=== PATIENT | male | born 1970 | race Caucasian/White ===

== ENCOUNTER 2017-08-04 12:12 | Inpatient (IN) ==
[2017-08-04] MEDS ORDERED: ALBUTEROL NEB INH ONE (12:46)
[2017-08-04] MEDS ORDERED: DUONEB (A & A) INH ONE (12:46)
[2017-08-04 13:01] LABS: MANUAL DIFF NEEDED? NO
--- NOTE | 2017-08-04 13:02 | PROVIDER DOCUMENTATION ---
HPI-Respiratory General - General Chief Complaint: Cough Stated Complaint: LOW OXYGEN Time Seen by Provider: 08/04/17 12:40 Source: patient Allergies/Adverse Reactions: Patient Allergies Allergy/AdvReac Type Severity Reaction Status Date / Time No Known Allergies Allergy Verified 08/04/17 12:59 Home Medications: Home Medication List Medication Instructions Recorded Confirmed Last Taken Type Furosemide [Lasix] 40 mg PO BID 04/12/13 08/04/17 08/03/17 21:00 History Metformin [Glucophage] 500 mg PO BID CC 04/12/13 08/04/17 08/03/17 21:00 History Potassium Chloride E.r. [Klor-Con] 20 meq PO BID #0 tablet 04/15/13 08/04/17 21:00 Rx LISINOpril [Prinivil] 5 mg PO DAILY 08/04/17 08/04/17 08/03/17 08:00 History - History of Present Illness-Resp Nature of Presenting Problem: 46 yom c/o SOB and low o2 sats for past 2 days that continues to get worse. Quality of Pain: reports: none Severity in ED: reports: moderate Onset/Duration: reports: 2 days ago Timing: reports: still present, getting worse Cough Quality/Degree: reports: moderate, productive cough Episode Frequency: occasional episodes Current Respiratory Medication Therapy: Initiated see nurses note Modifying Factors: improves with: oxygen, rest Associated Symptoms: reports: fever/chills, shortness of breath Similar Symptoms Previously?: No Recently seen or treated by another doctor?: No Review of Systems - Adult - REVIEW OF SYSTEMS - ADULT Constitutional: reports: see HPI, chills, fever Eyes: reports: no symptoms reported Ears, Nose, Mouth & Throat: reports: no symptoms reported Cardiovascular: reports: no symptoms reported Respiratory: reports: see HPI, cough, dyspnea on exertion, shortness of breath Gastrointestinal: reports: no symptoms reported Genitourinary: reports: no symptoms reported Musculoskeletal: reports: no symptoms reported Integumentary: reports: no symptoms reported Neurological: reports: no symptoms reported Psychiatric: reports: no symptoms reported Endocrine: reports: no symptoms reported Hematologic/Lymphatic: reports: no symptoms reported Allergic/Immunologic: reports: no symptoms reported All Other Systems: Reviewed and Negative Past History - Adult - PAST MEDICAL HISTORY-ADULT Review of Records: reports: Old Records Reviewed, Nursing Assessment Review, Medications Reviewed, Social history reviewed & non-contributory. Major Childhood Illnesses: reports: denies history Cardiovascular: reports: denies history Respiratory: reports: denies history Gastrointestinal: reports: denies history Genitourinary: reports: denies history Musculoskeletal: reports: denies history Neurological: reports: denies history Psychiatric: reports: denies history Endocrine/Immune: reports: denies history Physical Exam-General - PHYSICAL EXAM-ADULT Initial Vital Signs Reviewed: Yes - CONSTITUTIONAL General Appearance: alert, no apparent distress - EYES Eyes: PERRL/EOMI, pink conjunctivae - HEAD, EARS, NOSE, MOUTH & THROAT HENMT: normocephalic/atraumatic, moist mucous membranes, normal ENT inspection - NECK Neck: non-tender, full range of motion, supple, normal inspection - RESPIRATORY Respiratory: chest non-tender, lungs clear, no pleuratic chest pain, no accessory muscle use, decreased breath sounds - CARDIOVASCULAR Cardiovascular: normal peripheral pulses, regular rate, rhythm - GASTROINTESTINAL (ABDOMEN) Abdominal Exam: normal bowel sounds, non tender, soft, no organomegaly, no pulsatile mass - LYMPHATIC Lymphatic: no adenopathy - MUSCULOSKELETAL Back Exam: normal inspection, no CVA tenderness, no vertebral tenderness Extremity: normal range of motion, non-tender, normal gait, no calf tenderness, normal capillary refill, pelvis stable, swelling (to bilateral lower extremities ) Peripheral Pulses: radial (R): 2+, radial (L): 2+, dorsalis-pedis (R): 2+, dorsalis-pedis (L): 2+ - SKIN Integumentary: normal color, normal turgor, warm/dry - NEUROLOGIC Neurologic: grossly normal, no motor/sensory deficits - PSYCHIATRIC Psych/Mental Status: normal mood/affect, normal thought content, normal thought process, oriented x 3 Progress - PLAN OF CARE/RESULTS Progress/Plan/Lab Results: Vital Signs - 8 hr 08/04/17 12:17 08/04/17 13:01 08/04/17 13:42 Temperature 98.0 F Pulse Rate 114 H 106 H 106 H Respiratory Rate 19 25 H 22 Blood Pressure 168/83 126/85 O2 Sat by Pulse Oximetry 89 L 95 Laboratory Results - last 24 hr 08/04/17 08/04/17 08/04/17 12:41 12:41 12:41 WBC 6.89 RBC 4.69 L Hgb 13.6 L Hct 44.2 MCV 94.2 MCH 29.0 MCHC 30.8 L RDW Std Deviation 16.4 H Plt Count 172 MPV 10.7 H Immature Gran % (Auto) 0.4 Neut % (Auto) 74.2 Lymph % (Auto) 12.5 L [place] % (Auto) 8.7 Eos % (Auto) 3.2 Baso % (Auto) 1.0 H Immature Gran # (Auto) 0.03 Neut # (Auto) 5.11 Lymph # (Auto) 0.86 L [place] # (Auto) 0.60 H Eos # (Auto) 0.22 Baso # (Auto) 0.07 Specimen Type Sample Site pH pCO2 pO2 HCO3 Base Excess Oxyhemoglobin ABG O2 Sat (Calculated) ABG O2 Saturation ABG Carboxyhemoglobin ABG Methemoglobin Lebron Test A-a O2 Difference Total Hemoglobin Lactate Blood Gas Modality FiO2 % Sodium 137 Potassium 4.4 Chloride 95 L Carbon Dioxide 33 Anion Gap 9 BUN 19 Creatinine 1.0 Estimated GFR/1.73 m2 > 60 BUN/Creatinine Ratio 19 Glucose 394 H Calculated Osmolality 292 Calcium 9.3 Total Bilirubin 0.40 AST 18 ALT 25 Alkaline Phosphatase 71 Troponin T < 0.010 Tzm-N-Opxafuvttyv Pept Total Protein 6.1 L Albumin 3.9 Globulin 2.2 Albumin/Globulin Ratio 1.8 08/04/17 08/04/17 12:41 14:14 WBC RBC Hgb Hct MCV MCH MCHC RDW Std Deviation Plt Count MPV Immature Gran % (Auto) Neut % (Auto) Lymph % (Auto) [place] % (Auto) Eos % (Auto) Baso % (Auto) Immature Gran # (Auto) Neut # (Auto) Lymph # (Auto) [place] # (Auto) Eos # (Auto) Baso # (Auto) Specimen Type ARTERIAL Sample Site R RADIAL pH 7.32 L pCO2 66 H* pO2 53 L HCO3 29.2 H Base Excess 5.8 H Oxyhemoglobin 86.1 L* ABG O2 Sat (Calculated) 16.0 ABG O2 Saturation 90.2 L ABG Carboxyhemoglobin 3.30 H ABG Methemoglobin 1.2 Lebron Test YES A-a O2 Difference 14.0 Total Hemoglobin 13.2 Lactate 2.40 H Blood Gas Modality ROOM AIR FiO2 % 21.0 Sodium Potassium Chloride Carbon Dioxide Anion Gap BUN Creatinine Estimated GFR/1.73 m2 BUN/Creatinine Ratio Glucose Calculated Osmolality Calcium Total Bilirubin AST ALT Alkaline Phosphatase Troponin T Hxi-Q-Wmnxfviqgly Pept 36 Total Protein Albumin Globulin Albumin/Globulin Ratio Orders Category Date Time Status Saline Loc NOW Care 08/04/17 12:46 Active CHEST-2 VIEWS [RAD] Stat Exams 08/04/17 12:46 Completed ABG [RESP] Routine Lab 08/04/17 14:14 Completed BLOOD CULTURE [BLDCUL] Stat Lab 08/04/17 12:41 Results BNP [PRO B-NATRIURETIC PEPTIDE] Stat Lab 08/04/17 12:41 Completed CBC WITH DIFF [HEME] Stat Lab 08/04/17 12:41 Completed COMPREHENSIVE METABOLIC PANEL [CHEM] Stat Lab 08/04/17 12:41 Completed TROPONIN T Stat Lab 08/04/17 12:41 Completed Albuterol 2.5MG/Ipratrop 0.5MG [Duoneb (A & A)] Med 08/04/17 12:46 Discontinued 3 ml INH NOW ONE Albuterol [Albuterol Neb] Med 08/04/17 12:46 Discontinued 2.5 mg INH NOW ONE Methylprednisolone Sod Succ [Solu-Medrol] Med 08/04/17 13:48 Discontinued 125 mg IV NOW ONE Aerosol Treatments Routine Oth 08/04/17 12:47 Completed Aerosol Treatments Stat Oth 08/04/17 12:47 Completed BIPAP Stat Oth 08/04/17 14:50 Active Pulse Oximetry Stat Oth 08/04/17 12:46 Completed 1410 Oxygen turned off to see if patient can keep his oxygen sats up. Result Diagrams: 08/04/17 12:41 08/04/17 12:41 - XRAY 1 XRAY Study: Chest Impression: Normal (Per radiologist) - CONSULTS/PCP/HOSPITALIST Notification #1 *Consult/PCP/Hospitalist*: Hospitalist Time Discussed: 15:00 Consult Disposition: Will see in ED, Admit Departure - Departure Date of Disposition Decision: 08/04/17 Time of Disposition Decision: 14:51 DIAGNOSIS: COPD exacerbation Disposition: ADMITTED INPATIENT 09 Certified Medical Emergency: Emergent Condition: Stable Referrals and Follow-Ups: Antonio Wallace [Primary Care Provider] - - Critical Care Note This patient required my direct & personal management of CC.: No Attestation - Physician/ BRITTA Attestation Patient care was provided by Advanced Practice Provider:: Yes Advanced Practice Provider:: Smith Easley Advanced Practice Provider documentation review:: The Mid-level provider documentation, treatment plan and medical decision making was reviewed by the physician who agrees with all treatment and medical decision making by the MLP. The physician spent face to face time with patient:: Yes Advanced Practice Provider documentation review:: Supervising physician onsite and consulted in the evaluation and care of this patient. The physician did have a face to face encounter with the patient.
[2017-08-04 13:26] LABS: EOS# 0.22 X1000 (0.0-0.7); EOS% 3.2 % (0.0-10.0); HEMATOCRIT 44.2 % (42.0-52.0); HEMOGLOBIN 13.6 g/dL (14.0-18.0); IMM GRAN# 0.03 X1000 (0.0-0.04); IMM GRAN% 0.4 % (0.0-0.5); LYMPH# 0.86 X1000 (1.2-3.4); LYMPH% 12.5 % (20.5-51.1); MCHC 30.8 g/dL (33-37); MCV 94.2 FL (81-99); MONO% 8.7 % (1.7-9.3); MPV 10.7 FL (7.4-10.4); NEUT% 74.2 % (42.2-75.2); PLT 172 X1000 (130-400); RBC 4.69 XMIL (4.7-6.1)
--- NOTE | 2017-08-04 13:35 | Diag Imaging Result Doc PS360 ---
CHEST-2 VIEWS - 08/04/2017 INDICATION: cough TECHNIQUE: COMPARISON: 09/14/2014 FINDINGS: There is stable small granuloma in the right upper lobe. The lungs are normally expanded and clear. Heart size and mediastinal contours are normal. No pneumothorax or pleural effusion. IMPRESSION: Negative exam. Electronically signed by Antonio Bird 08/04/2017 1:32 PM
[2017-08-04] MEDS ORDERED: SOLU-MEDROL IV ONE (13:48)
[2017-08-04 14:02] LABS: AGAP 9; ALBUMIN 3.9 g/dL (3.5-5.0); ALKALINE PHOSPHATASE 71 U/L (32-122); BUN 19 mg/dL (8-22); CALCIUM 9.3 mg/dL (8.8-10.2); CHLORIDE 95 mmol/L (98-107); COSMO 292; GOT 18 U/L (10-34); GPT 25 U/L (10-44); POTASSIUM 4.4 mmol/L (3.5-5.1); SODIUM 137 mmol/L (136-145); TCO2 33 mmol/L (25-35); TOTAL PROTEIN 6.1 g/dL (6.3-8.3)
[2017-08-04 14:24] LABS: ALLEN TEST YES; BE 5.8 mmoll (-3.0-3.0); BLOOD TYPE ARTERIAL; DRAW SITE R RADIAL; METHB 1.2 % (0.0-1.5); PO2(98.6) 53 mmHg (60-100); SAMPLE BLOOD; SAO2 90.2 % (95.0-100.0); THB 13.2 g/dL (11.5-17.4); pH(98.6) 7.32 (7.35-7.45)
[2017-08-04 14:26] LABS: MODALITY ROOM AIR; PCO2(98.6) 66 mmHg (35-45)
--- NOTE | 2017-08-04 16:12 | EKG Report ---
Test Performed on : 08/04/2017 4:00:02 PM Test Reason : evaluate rythm Blood Pressure : / mmHG Vent. Rate : 090 BPM Atrial Rate : 090 BPM P-R Int : 170 ms QRS Dur : 096 ms QT Int : 356 ms P-R-T Axes : 051 010 035 degrees QTc Int : 435 ms Normal sinus rhythm. Normal ECG When compared with ECG of 04-JUN-2013 22:06, Non-specific change in ST segment in Inferior leads Non-specific change in ST segment in Lateral leads Nonspecific T wave abnormality no longer evident in Inferior leads Nonspecific T wave abnormality no longer evident in Lateral leads QT has lengthened Unconfirmed Result
--- NOTE | 2017-08-04 16:28 | ED EKG INTERP ---
This chart was entered by Nita Carpenter Scribe, acting as scribe for Eloisa Traylor MD. EKG Interpretation - EKG Time of EKG reading by physician:: 16:00 EKG Read and Signed by:: Eloisa Traylor EKG Interpretation (*Must complete 3 of following elements*): Normal Rate: 90 Rhythm: NSR Attestation - Physician/ BRITTA Attestation Patient care was provided by Advanced Practice Provider:: No The physician spent face to face time with patient:: Yes Advanced Practice Provider documentation review:: Supervising physician onsite and consulted in the evaluation and care of this patient. The physician did have a face to face encounter with the patient. This chart was documented by the indicated scribe, (Nita Carpenter Scribe) and accurately reflects the services I performed and decisions made by me, Eloisa Traylor MD, as attested by the provider's signature.
[2017-08-04] MEDS ORDERED: TYLENOL PO PRN (16:35)
[2017-08-04] MEDS ORDERED: ZOFRAN IV PRN (16:35)
[2017-08-04] MEDS: ATROVENT NEB INH SCH ×2 (17:04→21:15)
[2017-08-04] MEDS: XOPENEX NEB INH SCH ×2 (17:05→21:15)
[2017-08-04] MEDS: HUMULIN R SUBQ SCH ×2 (17:24→20:59)
[2017-08-04] MEDS: ROCEPHIN 1 GM in NS 50 ML IV SCH (17:25)
--- NOTE | 2017-08-04 17:51 | HISTORY AND PHYSICAL ---
PRIMARY CARE PROVIDERS: Antonio Wallace Jr., M.D. CHIEF COMPLAINT: Shortness of breath. HISTORY OF PRESENT ILLNESS: Mr. Smith Medeiros is a 46-year-old morbidly obese male with a medical history of diabetes mellitus type 2, COPD, pickwickian syndrome, obstructive sleep apnea. He states that he went to [place] this morning to be triaged for a weight loss surgery. They noted his O2 saturation was 82% and gave him the option of coming to [place] for evaluation or to stay there. He preferred coming back to [place] as he lives here. Other history, he has had 2 other admissions for COPD exacerbation, once in 2007 and again in 2013. The one in 2013 required intubation. He states that he has had a fluid weight gain of 30 pounds in the last 2 months. He claims to take a dose of Lasix 240 mg, but it appears that he takes 40 mg p.o. twice daily. Upon questioning his tobacco abuse history, he quit smoking 4 years ago. ABGs revealed that he has a pH is 7.32, pCO2 of 66, and a PO2 of 53. He was not having difficulties answering questions. He did have a mild lactic acidosis of 2.4 and those gases were on room air. His O2 saturation on the monitor was about 95-96% on 2 L nasal cannula. He will be placed on BiPAP for temporary support, IV steroids, antibiotic coverage and consult for Dr. Dobbs. He had a normal white blood cell count. He was afebrile. There were only some mild expiratory wheezes. Upon auscultation, his chest x-ray did not show any signs of heart failure despite the fluid weight gain. His proBNP was normal at 36. Cardiac enzymes are negative. So, will order an echo tomorrow just to rule out any possible cardiac cause for weight gain. PAST MEDICAL HISTORY: 1. Diabetes mellitus type 2. 2. COPD, no home O2. 3. Hypertension. 4. Morbid obesity with a BMI of 65. 5. Pickwickian syndrome. 6. Obstructive sleep apnea. Does not wear CPAP. Was supposed to follow up with Dr. Dobbs at some point in time for this. 7. History of C. difficile. 8. History of intubation with tracheostomy back in 2012 for COPD. SURGICAL HISTORY: Cholecystectomy. SOCIAL HISTORY: Quit smoking 4 years ago. Denies alcohol or illicit drug use. FAMILY HISTORY: He denies that there is any family history of COPD or heart disease. REVIEW OF SYSTEMS: 14 point review of systems are complete and all were negative except for those mentioned in above HPI. He did state that he had a thick cough, thick phlegm, unsure of what color. He did have some chills and shortness of breath. He was unsure if he had a fever as he did not check it. He states that these symptoms have only been going on for about 1 day. He claims to have had a weight gain of 30 pounds in 2 months. More fatigued. He does have some diarrhea that comes and goes, but no complaints of pain. ALLERGIES: No known drug allergies. HOME MEDICATIONS: Lasix 40 mg p.o. twice daily, lisinopril 5 mg p.o. daily, metformin 500 mg p.o. twice daily, potassium chloride, extended release 20 mEq p.o. twice daily. PHYSICAL EXAMINATION: VITAL SIGNS: Temperature 98 degrees, heart rate 90, respiratory rate 22, blood pressure 126/85, O2 saturation 96% on 2 L nasal cannula. On room air he was down to 82% at the bedside. He is 5 feet 7 inches tall, 415 pounds with a BMI of 65. GENERAL: Mr. Smith Medeiros is a 46-year-old morbidly obese male, he is in no acute distress. He is able answer questions appropriately. HEENT: Atraumatic, normocephalic. Pupils equal, round, reactive to light. Extraocular movements intact. Mucous membranes are moist. NECK: Neck difficult to assess. He has a very large body habitus. Unable to assess for JVD as he had a very large neck circumference. Negative for carotid bruits. CARDIOVASCULAR: S1, S2. Tachycardic rate and rhythm. No rubs, gallops, or murmurs. He has got significant 3 to 4+ pitting edema in the lower extremities. They are warm to touch. Pulses +2 dorsalis pedal pulses. The radial pulses were also +2 once you got through the significant pitting edema. PULMONARY: Mild expiratory wheezes, anterior posteriorly throughout. Mild tachypnea with requiring 2 L nasal cannula to keep his saturation over 90. No accessory muscle use and just mild work of breathing. GI: Significantly obese. Positive bowel sounds. Nontender, soft. EXTREMITIES: Moves all extremities equally. NEUROLOGIC: Alert and oriented x4. He had a stable gait. No sensory changes in extremities. SKIN: Warm, dry, intact. LABORATORY DATA: White blood cells 6000, hemoglobin 13, hematocrit 44, platelet count 172,000. ABGs: PH 7.32, pCO2 66, PO2 53, bicarb 29, base excess 5.8, saturation 96% on room air with a lactate of 2.4, sodium 137, potassium 4.4, BUN 19, creatinine is 1, glucose 394 , bilirubin 0.4, AST 18, ALT 25, troponin was 0.01, proBNP 36, albumin 3.9. IMAGING: Chest x-ray: Lungs normally expanded and clear. Heart signs normal. No pneumonia or pleural effusion. ASSESSMENT AND PLAN: 1. Chronic obstructive pulmonary disease exacerbation. Apparently he was supposed to follow up Dr. Dobbs in the past. We will add IV steroids for now, respiratory nebulizers, prophylactic antibiotic, BiPAP for now. We will recheck ABGs in the morning and a chest x -ray. 2. Claims to have had a 30 pound weight gain. He does have significant lower extremity edema and is morbidly obese, but we will go ahead and check an echocardiogram as his last one was around 1 year ago and at that time he had a normal left ventricular ejection fraction of 60%. No valvular disease. It does not appear that he had diastolic heart failure either. His proBNP is normal, his cardiac enzymes negative. 3. Diabetes mellitus type 2. We will do pattern blood glucoses and sliding scale insulin. 4. Obstructive sleep apnea with a Pickwickian syndrome. Apparently he is going to go for weight loss surgery soon or was going to be worked up for it, but he denies wearing a CPAP at night for his obstructive sleep apnea. 5. Severe morbid obesity with a body mass index of 65. Diet and exercise was discussed. 6. Noncompliant. Patient states that he is scared of medications. He denies taking any medications for chronic obstructive pulmonary disease. 7. Deep venous thrombosis prophylaxis, Lovenox. 8. Gastrointestinal prophylaxis, Protonix. Dictated by ALO Castro for Jeferson Hill MD Addendum: Patient seen and examined. Agree with ALO note. It reflects my assessment and plan. Patient being admitted for COPD exacerbation. Last exacerbation 4 years ago and since then he was not using any inhaler. Today he went to [place] to be evaluated for bariatric surgery and he was found to have a 82% O2 sat. He was complaining of shortness of breath for the last 2 days. Also he claimed he gained 30 pounds during the last 8 weeks. He is on Lasix. There should be a component of cor pulmonale worsened by right heart failure secondary to sleep apnea. Will check an echo and will continue with Lasix. Will continue to monitor this patient closely in the hospital. Will repeat an ABG tomorrow. cc: ALO Castro MD MTDD
[2017-08-04] MEDS: PULMICORT INH SCH (20:18)
[2017-08-04] MEDS: MUCOMYST 20% INH SCH (20:18)
[2017-08-04] MEDS: KLOR-CON PO SCH (20:59)
[2017-08-04] MEDS: LASIX PO SCH (20:59)
[2017-08-04] MEDS: SOLU-MEDROL IV SCH (23:06)
[2017-08-05] MEDS: XOPENEX NEB INH SCH ×4 (04:10→21:14)
[2017-08-05] MEDS: ATROVENT NEB INH SCH ×4 (04:10→21:14)
[2017-08-05 04:53] LABS: ALLEN TEST YES; BE 6.4 mmoll (-3.0-3.0); BLOOD TYPE ARTERIAL; DRAW SITE R RADIAL; METHB 0.8 % (0.0-1.5); O2(CT) 13.4 mL/dL (15.0-23.0); PO2(98.6) 105 mmHg (60-100); SAMPLE BLOOD; SAO2 99.4 % (95.0-100.0); THB 9.8 g/dL (11.5-17.4); pH(98.6) 7.29 (7.35-7.45)
[2017-08-05 04:58] LABS: MODALITY BI PAP; PCO2(98.6) 72 mmHg (35-45)
[2017-08-05] MEDS: SOLU-MEDROL IV SCH ×3 (06:05→22:12)
[2017-08-05] MEDS: PROTONIX PO SCH (06:05)
[2017-08-05] MEDS: HUMULIN R SUBQ SCH ×4 (06:05→22:10)
[2017-08-05 07:18] LABS: BASO% 0.1 % (0.0-0.8); HEMATOCRIT 45.2 % (42.0-52.0); HEMOGLOBIN 14.1 g/dL (14.0-18.0); IMM GRAN# 0.06 X1000 (0.0-0.04); IMM GRAN% 0.8 % (0.0-0.5); LYMPH% 5.6 % (20.5-51.1); MANUAL DIFF NEEDED? YES; MCHC 31.2 g/dL (33-37); MCV 92.8 FL (81-99); MONO# 0.14 X1000 (0.11-0.59); MPV 10.9 FL (7.4-10.4); NEUT% 91.5 % (42.2-75.2); PLT 188 X1000 (130-400); RBC 4.87 XMIL (4.7-6.1)
[2017-08-05 07:41] LABS: FREE T4 1.13 ng/dL (0.93-1.70)
[2017-08-05 07:47] LABS: AGAP 12; CHLORIDE 91 mmol/L (98-107); POTASSIUM 4.8 mmol/L (3.5-5.1); SODIUM 134 mmol/L (136-145); TCO2 31 mmol/L (25-35)
[2017-08-05 07:48] LABS: ALBUMIN 3.9 g/dL (3.5-5.0); ALKALINE PHOSPHATASE 73 U/L (32-122); BANDS 2 % (0-1); BUN 18 mg/dL (8-22); CALCIUM 9.2 mg/dL (8.8-10.2); COSMO 289; GOT 21 U/L (10-34); GPT 34 U/L (10-44); LYMPHS 6 % (21-51); MONO 1 % (1-9); TOTAL BILIRUBIN 0.43 mg/dL (0.20-1.00); TOTAL PROTEIN 6.8 g/dL (6.3-8.3)
[2017-08-05] MEDS ORDERED: INSULIN PEN NEEDLES ONE (08:07)
[2017-08-05] MEDS: KLOR-CON PO SCH ×2 (08:21→22:11)
[2017-08-05] MEDS: LOVENOX SUBQ SCH (08:21)
[2017-08-05] MEDS: PRINIVIL PO SCH (08:22)
[2017-08-05] MEDS ORDERED: LANTUS SUBQ SCH (09:00)
--- NOTE | 2017-08-05 09:45 | PROGRESS NOTE ---
DATE: 08/05/2017 SUBJECTIVE: This patient states that he is feeling about the same compared with yesterday. He is still having some weakness and shortness of breath. I had a large conversation with this patient about losing weight, and he told me that he will go to [facility] because he will probably get bariatric surgery. Also, he is willing to do the sleep study because this patient has for sure sleep apnea. Dr. Dobbs, from Pulmonary Department, has been consulted pending evaluation and recommendations. For now, we will continue with the breathing treatment. This patient's blood sugar has been elevated, and his hemoglobin A1c is 9. So this patient is not taking care of his blood sugar at home. I will start this patient on Lantus 15, and I will continue with sliding scale insulin and pattern of blood sugar. OBJECTIVE: Vital Signs: Temperature 97.6 degrees, pulse 70, respiratory rate 20, blood pressure 147/91, oxygen saturation 93 on 3 L of nasal cannula. HEENT: Head normocephalic. No trauma. PERRLA. Neck: Supple. I cannot see JVD because of his neck size. Central trachea. Chest: Decreased breath sounds at the bases. I do not hear any wheezing or rales. Abdomen: Soft, obese, nontender to palpation. Extremities: 2+ lower extremity edema. No clubbing. No cyanosis. Neurological: The patient is alert and oriented x3. No focal deficits. LABORATORY: WBC 7.1, hemoglobin 14.1, hematocrit 45.2, platelets 188,000. Sodium 134, potassium 4.8, chloride 91, bicarbonate 31, BUN 18, creatinine 0.9, glucose 426, calcium 9.2. Hemoglobin A1c 9. TSH 125, T4 1.1. ASSESSMENT AND PLAN: 1. Chronic obstructive pulmonary disease exacerbation. I do not hear any wheezing at this moment, but he has decreased breath sounds at mostly at the bases. He was supposed to follow up with Dr. Dobbs in the past. We have consulted him again. This patient is to have a sleep study done. He needs a CPAP machine to use during the night. For now, I will continue with the same management of his respiratory problems. 2. Fluid overload. Apparently, he has been gaining weight about 30 pounds, and he states that all of this is because of he is retaining fluid. He is morbidly obese, and he has lower extremity up to the thigh edema around 2 to 3+. Pending echocardiogram, a year ago the ejection fraction was fine, around 60%. I do not see any JVD. 3. Type 2 diabetes, uncontrolled. Hemoglobin A1c is 9. I have placed this patient on Lantus 15, and will continue pattern blood sugar and sliding scale insulin. 4. Obstructive sleep apnea with Pickwickian syndrome. Apparently, he is going to go for bariatric surgery at [facility]. He is being worked up for this. He denies any CPAP at night for his sleep apnea. 5. Severe obesity with a body max body mass index of 65. We had a discussion about this. I recommended more physical activity and diet. Like I mentioned before, he is trying to get bariatric surgery. 6. Deep vein thrombosis prophylaxis with Lovenox. 7. Gastrointestinal prophylaxis. Continue with Protonix. cc: Joseph Caraballo MD
[2017-08-05] MEDS: LASIX PO SCH ×2 (10:32→22:11)
[2017-08-05] MEDS: MUCOMYST 20% INH SCH ×2 (11:09→19:48)
[2017-08-05] MEDS: PULMICORT INH SCH ×2 (11:09→19:49)
[2017-08-05] MEDS ORDERED: MYCOSTATIN POWDER TOP SCH (13:30)
[2017-08-05] MEDS: ROCEPHIN 1 GM in NS 50 ML IV SCH (16:30)
[2017-08-06] MEDS: HUMULIN R SUBQ SCH ×6 (00:40→21:00)
[2017-08-06] MEDS: ATROVENT NEB INH SCH ×4 (04:07→21:30)
[2017-08-06] MEDS: XOPENEX NEB INH SCH ×4 (04:07→21:30)
[2017-08-06 04:40] LABS: ALLEN TEST YES; BE 8.2 mmoll (-3.0-3.0); BLOOD TYPE ARTERIAL; DRAW SITE R RADIAL; METHB 1.5 % (0.0-1.5); O2(CT) 18.5 mL/dL (15.0-23.0); PO2(98.6) 102 mmHg (60-100); SAMPLE BLOOD; SAO2 98.5 % (95.0-100.0); THB 13.8 g/dL (11.5-17.4); pH(98.6) 7.37 (7.35-7.45)
[2017-08-06 04:42] LABS: MODALITY BI PAP; PCO2(98.6) 62 mmHg (35-45)
[2017-08-06] MEDS: SOLU-MEDROL IV SCH ×2 (06:06→13:47)
[2017-08-06] MEDS: PROTONIX PO SCH (06:07)
[2017-08-06] MEDS ORDERED: LANTUS SUBQ SCH (07:38)
[2017-08-06 08:05] LABS: AGAP 14; BUN 20 mg/dL (8-22); CALCIUM 8.7 mg/dL (8.8-10.2); CHLORIDE 88 mmol/L (98-107); COSMO 288; SODIUM 135 mmol/L (136-145); TCO2 33 mmol/L (25-35)
--- NOTE | 2017-08-06 08:40 | ECHO REPORT ---
ORDER DATE: 08/05/2017 MEASUREMENTS: Left ventricular end-diastolic diameter 4.5, end systolic diameter 2.7, septal thickness 1.1, posterior wall thickness 1.1. Left atrium 4.4, aortic root 3.7. SUMMARY: 1. Technically difficult study due to limited acoustic window quality. Intravenous echo contrast agent Definity was administered to enhance endocardial definition. 2. Aortic, mitral and tricuspid valves all without evidence of structural abnormality. Pulmonic valve is not well demonstrated. There is trace mitral regurgitation and trace tricuspid regurgitation. Estimated systolic PA pressure by Doppler is 25-30 mmHg. Aortic root is normal size. 3. Normal left ventricular dimension suggested. Estimated left ventricular ejection fraction appears to be at least 65%. No regional wall motion abnormalities are evident. Left atrium is mildly enlarged. Right atrium and right ventricle are normal size with normal right ventricular systolic function. 4. No pericardial effusion. 5. Inferior vena cava not well demonstrated. CONCLUSIONS: 1. Technically difficult study. 2. No significant valvular abnormality evident. 3. Estimated left ejection fraction at least 65%. 4. Mild left atrial enlargement. cc: MD Philly Lucia CRNP
[2017-08-06] MEDS: LOVENOX SUBQ SCH (09:38)
[2017-08-06] MEDS: KLOR-CON PO SCH ×2 (09:39→20:53)
[2017-08-06] MEDS: PRINIVIL PO SCH (09:39)
[2017-08-06] MEDS: LASIX PO SCH ×2 (09:39→20:56)
[2017-08-06] MEDS: PULMICORT INH SCH ×2 (12:01→20:29)
[2017-08-06] MEDS: MUCOMYST 20% INH SCH ×2 (12:01→20:29)
--- NOTE | 2017-08-06 13:54 | PROGRESS NOTE ---
DATE: 08/06/2017 SUBJECTIVE: This patient states that he is feeling a little bit better but he is still complaining of shortness of breath mostly with physical activity. His blood sugar has been uncontrolled and his hemoglobin A1c is 9, I have increased the dose of Lantus to 40 and I will continue to monitor this and using a sliding scale insulin. Pulmonary department is following this patient as well. OBJECTIVE: Vital Signs: Temperature 97.9 degrees, pulse 68, respiratory rate 20, blood pressure 128/57, oxygen saturation 97 on 2 L of nasal cannula. HEENT: Head normocephalic. No trauma. PERRLA. Neck: Supple. I cannot see JVD because of his neck size. Central trachea. Chest: Decreased breath sounds at the bases. I do not hear any wheezing or rales. Abdomen: Soft, obese, nontender to palpation. Extremities: 1+ lower extremity edema. No clubbing. No cyanosis. Neurological: The patient is alert and oriented x3. No focal neurological deficits. LABORATORY: pCO2 62 on BiPAP, sodium 135, potassium 5, chloride 88, bicarbonate 33, BUN 20, creatinine 0.9, glucose 367, calcium 8.7. Hemoglobin A1c 9. ASSESSMENT AND PLAN: 1. Chronic obstructive pulmonary disease exacerbation. I think this is resolved, he has been breathing fine but he is still complaining of mild shortness of breath. Pulmonary Department following this patient. Likely this patient will need a CPAP machine at home. 2. Fluid overload. Apparently he has been gaining weight about 30 pounds. He is morbidly obese and he has edema at the level of the lower extremity up to the knee around 1+. Echocardiogram done yesterday did not show any systolic or diastolic dysfunction. Ejection fraction is fine. 3. Type 2 diabetes uncontrolled, hemoglobin A1c 9. I increased the dose of Lantus today to 40 and will continue to monitor. 4. Obstructive sleep apnea with Pickwickian syndrome. Apparently he is going for bariatric surgery at [facility]. He has been worked up for this. He denies any CPAP at night for his sleep apnea. 5. Severe obesity with body mass index of 65. We have a discussion about this. I recommended more physical activity and diet, even here during this hospitalization he is not following a diet and like I mentioned before he is trying to get bariatric surgery. 6. Deep vein thrombosis prophylaxis with Lovenox. 7. Gastrointestinal prophylaxis with Protonix. I asked the nurse to walk with this patient without oxygen and his oxygen saturation was 91 without oxygen. cc: Joseph Caraballo MD
[2017-08-06] MEDS: LANTUS SUBQ SCH (20:54)
[2017-08-06] MEDS: HALL'S COUGH LOZENGE MT PRN (21:05)
--- NOTE | 2017-08-06 21:11 | CONSULTATION ---
DATE OF CONSULTATION: 08/06/2017 FAMILY PHYSICIAN: Antonio Wallace Jr, MD. CHIEF COMPLAINT: Shortness of breath. HISTORY OF PRESENT ILLNESS: This is a 46-year-old male who is morbidly obese with a past medical history of COPD and obstructive sleep apnea. He states that he also has a problem with fluid retention which has worsened over the past couple of months. He states that he is wanting to have bariatric surgery for weight loss. Patient's oxygen saturation was noted at 82% as he went for surgical evaluation in [place]. He decided to be evaluated for his hypoxia at [facility]. Patient states that he does not wear APAP device nocturnally. PAST MEDICAL HISTORY: Diabetes mellitus type 2, COPD, hypertension, morbid obesity with a BMI 65, pickwickian syndrome, obstructive sleep apnea, history of Clostridium difficile, history of intubation with tracheostomy back in 2012 for COPD. PAST SURGICAL HISTORY: Cholecystectomy. SOCIAL HISTORY: Denies alcohol or illicit drug use. States that he stopped smoking 4 years ago. FAMILY HISTORY: His denies that there is family history of COPD or heart disease. REVIEW OF SYSTEMS: A 10-point review of systems was conducted, and the pertinent is listed in the HPI, otherwise noncontributory. ALLERGIES: No known drug allergies. MEDICATIONS: Potassium chloride 20 mEq p.o. b.i.d., metformin 500 mg p.o. b.i.d., lisinopril 5 mg p.o. daily, furosemide 40 mg p.o. daily. PHYSICAL EXAMINATION: Vital Signs: Temperature 98, pulse rate 81, respiratory rate 20, blood pressure 172/83, O2 saturation 96 on room air. General: The patient is a morbidly obese male. Alert and oriented x3. HEENT: Head atraumatic and normocephalic. Pupils are equal, round, reactive to light and accommodation. Mucus membranes are moist and pink. Neck: He has a very large body habitus so was difficult to assess. Cardiovascular: S1 and S2 auscultated. Normal rate and regular in rate and rhythm. No rubs, gallops, or murmurs. Pulmonary: Mild expiratory wheezes per auscultation bilaterally. No labored breathing. Gastrointestinal: Bowel sounds present. Nontender. Soft. Extremities: 3 to 4+ pitting edema noted bilaterally in the lower extremities. Skin: Warm, dry, and intact. LABORATORY DATA: The pH is 7.37, pCO2 62, pO2 102, HCO3 31.3, base excess 8.2, oxyhemoglobin 95.0. Sodium 135, potassium 5.0, chloride 88, carbon dioxide 33, BUN is 20, creatinine 0.9, glucose 367, calcium 8.7. DIAGNOSTIC DATA: Last chest x-ray on 08/04/2017 negative exam but stated that there were several small granuloma in the right upper lobe with normally expanded lungs and clear. Heart size and mediastinal contours are normal. No pneumothorax or pleural effusion. ASSESSMENT AND PLAN: 1. Chronic obstructive pulmonary disease with exacerbation. Continue bronchodilators and steroids. 2. Diabetes mellitus. Continue sliding scale insulin with pattern blood glucose. 3. Obstructive sleep apnea. He will need a sleep study work up. 4. Morbid obesity. Low-fat diet with exercise discussed, possible weight loss surgery. 5. Continue gastrointestinal prophylaxis with Protonix. 6. Continue deep venous thrombosis prophylaxis with Lovenox. Thank you for the courtesy of this consult. cc: Stefania Dobbs MD
[2017-08-06] MEDS ORDERED: SOLU-MEDROL IV SCH (22:00)
[2017-08-07] MEDS: XOPENEX NEB INH SCH ×4 (04:33→19:40)
[2017-08-07] MEDS: ATROVENT NEB INH SCH ×4 (04:33→19:40)
[2017-08-07] MEDS: PROTONIX PO SCH (06:44)
[2017-08-07] MEDS: HUMULIN R SUBQ SCH ×4 (06:45→21:19)
[2017-08-07 08:27] LABS: AGAP 9; BUN 21 mg/dL (8-22); CALCIUM 8.3 mg/dL (8.8-10.2); CHLORIDE 89 mmol/L (98-107); COSMO 276; POTASSIUM 4.5 mmol/L (3.5-5.1); SODIUM 132 mmol/L (136-145); TCO2 34 mmol/L (25-35)
[2017-08-07] MEDS: HALL'S COUGH LOZENGE MT PRN (09:32)
[2017-08-07] MEDS: PRINIVIL PO SCH (09:33)
[2017-08-07] MEDS: LASIX PO SCH ×2 (09:33→20:00)
[2017-08-07] MEDS: KLOR-CON PO SCH ×2 (09:33→20:01)
[2017-08-07] MEDS: LANTUS SUBQ SCH ×2 (09:34→19:59)
[2017-08-07] MEDS: LOVENOX SUBQ SCH (09:34)
--- NOTE | 2017-08-07 10:07 | PROGRESS NOTE ---
DATE: 08/07/2017 SUBJECTIVE: This patient states that he is feeling better. His shortness of breath is improving. His blood sugar has been uncontrolled and his hemoglobin A1c is 9. He is getting, at this moment, Lantus twice a day. I have stopped his IV steroids and I put him on a low dose of prednisone p.o. I do believe this patient can be discharged tomorrow. OBJECTIVE: Vital Signs: Temperature 97.7 degrees, pulse 76, respiratory rate 20, blood pressure 131/65, oxygen saturation 95% on nasal cannula. HEENT: Head normocephalic. No trauma. PERRLA. Neck: Supple. I cannot see JVD because of his neck size. Central trachea. Chest: Decreased breath sounds at the bases. No wheezing. No rales. Abdomen: Soft, obese, nondistended. Nontender to palpation. Extremities: There is 1+ lower extremity edema. No clubbing. No cyanosis. Neurological Examination: The patient is alert and oriented x3. No focal deficits. Laboratory: Sodium 132, potassium 4.5, chloride 89, bicarbonate 34, BUN 21, creatinine 1, glucose 259, calcium 8.3. ASSESSMENT AND PLAN: 1. Chronic obstructive pulmonary disease exacerbation. I think this is much better. He has been breathing fine and he complained just of mild shortness of breath. Pulmonary department following this patient. I will decrease the dose of steroids and I will switch it from intravenous to oral. 2. Fluid overload. Apparently, he has been gaining weight, about 30 pounds. He is morbidly obese, and he has edema in the lower extremities up to the knee, around 1+. He looks better though. Echocardiogram done yesterday did not show any systolic or diastolic dysfunction. Ejection fraction is fine. 3. Type 2 diabetes, uncontrolled. Hemoglobin A1c is 9. I have placed this patient on Lantus 40 twice a day and I have stopped the intravenous steroids. I switched it to oral low dose of prednisone. 4. Obstructive sleep apnea with pickwickian syndrome. Apparently, he is going for bariatric surgery at [facility]. He has been worked up for this. He denies any CPAP at night at home for sleep apnea. Dr. Dobbs will probably do a sleep study as an outpatient. This patient needs a CPAP machine at home. 5. Severe obesity with a BMI of 65. We had a discussion about this. I recommended more physical activity and diet. Apparently, he is planning to do bariatric surgery. 6. Deep vein thrombosis prophylaxis with Lovenox. 7. Gastrointestinal prophylaxis with Protonix. 8. Overall, this patient is doing better. He needs to talk to the school social worker because probably, he can get both Medicaid and Medicare. He has a low income. His blood sugar is still uncontrolled and I have placed this patient on Lantus 40 twice a day. Probably, we can readjust his dose tomorrow and send him home. Apparently, he has been placed on Lantus before but he did not buy it. He needs to follow up with Dr. Dobbs as an outpatient to get a sleep study. He needs to call him on Tuesday to set up an appointment and also he needs to talk to the school social worker. cc: Joseph Caraballo MD
[2017-08-07] MEDS: MUCOMYST 20% INH SCH ×2 (11:18→19:40)
[2017-08-08] MEDS: ATROVENT NEB INH SCH ×4 (03:15→22:55)
[2017-08-08] MEDS: XOPENEX NEB INH SCH ×4 (03:15→22:55)
[2017-08-08] MEDS: PROTONIX PO SCH (06:20)
[2017-08-08] MEDS: HUMULIN R SUBQ SCH ×4 (06:20→23:15)
[2017-08-08 07:31] LABS: AGAP 9; BUN 21 mg/dL (8-22); CALCIUM 8.8 mg/dL (8.8-10.2); CHLORIDE 92 mmol/L (98-107); COSMO 280; POTASSIUM 4.5 mmol/L (3.5-5.1); SODIUM 137 mmol/L (136-145); TCO2 36 mmol/L (25-35)
[2017-08-08] MEDS: LANTUS SUBQ SCH ×2 (08:20→21:14)
[2017-08-08] MEDS: LOVENOX SUBQ SCH (08:21)
[2017-08-08] MEDS: PREDNISONE PO SCH (08:21)
[2017-08-08] MEDS: KLOR-CON PO SCH ×2 (08:21→20:29)
[2017-08-08] MEDS: LASIX PO SCH ×2 (08:21→20:29)
[2017-08-08] MEDS: PRINIVIL PO SCH (08:21)
[2017-08-08] MEDS ORDERED: VANCOMYCIN IV PER PHARMACY MISC SCH (08:30)
[2017-08-08] MEDS: MUCOMYST 20% INH SCH ×2 (09:34→22:55)
[2017-08-08] MEDS ORDERED: XOPENEX NEB ONE ×4 (11:38→15:12)
[2017-08-08] MEDS: VANCOMYCIN 2,000 MG in NS 500 ML IV SCH (11:54)
--- NOTE | 2017-08-08 13:22 | Diag Imaging Result Doc PS360 ---
CT THORAX W/O CONTRAST - 08/08/2017 INDICATION: pneumonia TECHNIQUE: A CT dose reduction protocol was used. COMPARISON: Chest x-ray from earlier FINDINGS: The liver is very fatty. No mass or adenopathy. Heart and great vessels are normal. There are some minimal right upper lobe infiltrates. This may well be some bronchopneumonia. Lungs are somewhat hyperexpanded compatible with COPD. There are moderate degenerative changes of the spine. No acute or suspicious bony lesion. IMPRESSION: 1. Trace right upper lobe infiltrate which may suggest bronchial pneumonia. 2. Fatty liver. Electronically signed by Antonio Bird 08/08/2017 1:19 PM
[2017-08-08] MEDS: ZOSYN 3.375 GM in NS 50 ML IV SCH ×2 (14:07→20:28)
[2017-08-08] MEDS ORDERED: INSULIN PEN NEEDLES ONE (15:58)
--- NOTE | 2017-08-08 16:48 | PROGRESS NOTE ---
DATE: 08/08/2017 SUBJECTIVE: The patient is resting comfortably in bed. He states that he feels weak but is slowly improving. He said he is coughing a lot less. OBJECTIVE: Vital Signs: Temperature 98 degrees, blood pressure 119/68, heart rate 88, respirations 22, O2 saturations 97% on 2 L nasal cannula. General: This is a middle-aged male sitting at the edge of the bed in no acute distress. Heart: S1, S2. Normal. Regular rate and rhythm. Lungs: Clear to auscultation bilaterally. No crackles. No wheezing. No rales. Abdomen: Positive bowel sounds. Soft, nontender, nondistended. Extremities: No edema. No cyanosis. No calf tenderness. Neurologic: The patient is alert and oriented x4. LABS: Sodium 137, potassium 4.5, chloride 92, CO2 36, BUN 21, creatinine 1.1, glucose 154, A1c 9. CT of the chest shows a right upper lobe infiltrate. ASSESSMENT AND PLAN: 1. Pneumonia. Will start the patient on Zosyn and vancomycin. Continue with bronchodilator therapy. 2. Bacteremia. 1 bottle of the blood cultures is positive for gram positive cocci. Will start Vancomycin. 3. Chronic obstructive pulmonary disease exacerbation. Improved. Continue on prednisone and bronchodilator therapy. 4. Uncontrolled diabetes mellitus type 2. Continue on Lantus 40 units subcutaneous twice a day plus sliding scale insulin. 5. Morbid obesity. Aware. 6. Fatty liver disease. Aware. 7. Deep vein thrombosis prophylaxis. Continue on Lovenox. cc: Sanam Sanchez MD MTDD
[2017-08-09] MEDS: ATROVENT NEB INH SCH ×4 (02:28→22:24)
[2017-08-09] MEDS: XOPENEX NEB INH SCH ×4 (02:29→22:24)
[2017-08-09] MEDS: ZOSYN 3.375 GM in NS 50 ML IV SCH ×4 (02:44→20:58)
[2017-08-09] MEDS: PROTONIX PO SCH (06:23)
[2017-08-09] MEDS: HUMULIN R SUBQ SCH ×4 (07:02→22:33)
[2017-08-09 07:09] LABS: BASO% 0.2 % (0.0-0.8); EOS# 0.39 X1000 (0.0-0.7); EOS% 4.5 % (0.0-10.0); HEMATOCRIT 46.6 % (42.0-52.0); HEMOGLOBIN 14.6 g/dL (14.0-18.0); LYMPH# 1.63 X1000 (1.2-3.4); MANUAL DIFF NEEDED? NO; MCHC 31.3 g/dL (33-37); MCV 92.5 FL (81-99); MONO# 0.84 X1000 (0.11-0.59); MONO% 9.8 % (1.7-9.3); NEUT% 66.5 % (42.2-75.2); PLT 211 X1000 (130-400); RBC 5.04 XMIL (4.7-6.1)
[2017-08-09 07:37] LABS: AGAP 9; BUN 18 mg/dL (8-22); CALCIUM 8.6 mg/dL (8.8-10.2); CHLORIDE 95 mmol/L (98-107); COSMO 282; POTASSIUM 4.4 mmol/L (3.5-5.1); SODIUM 140 mmol/L (136-145); TCO2 36 mmol/L (25-35)
[2017-08-09] MEDS: LASIX PO SCH ×2 (08:47→20:58)
[2017-08-09] MEDS: KLOR-CON PO SCH ×2 (08:47→20:58)
[2017-08-09] MEDS: PREDNISONE PO SCH (08:47)
[2017-08-09] MEDS: PRINIVIL PO SCH (08:47)
[2017-08-09] MEDS: LOVENOX SUBQ SCH (08:48)
[2017-08-09] MEDS: LANTUS SUBQ SCH ×2 (08:49→20:58)
[2017-08-09] MEDS: MUCOMYST 20% INH SCH ×2 (09:42→22:24)
[2017-08-09] MEDS: VANCOMYCIN 2,000 MG in NS 500 ML IV SCH (12:25)
[2017-08-10] MEDS: ZOSYN 3.375 GM in NS 50 ML IV SCH ×4 (02:58→23:45)
[2017-08-10] MEDS: ATROVENT NEB INH SCH ×4 (03:10→21:10)
[2017-08-10] MEDS: XOPENEX NEB INH SCH ×5 (03:10→21:10)
--- NOTE | 2017-08-10 04:58 | PROGRESS NOTE ---
DATE: 08/09/2017 SUBJECTIVE: The patient is sitting at the edge of the bed playing a video game. He states that he is feeling a little bit better but does not feel like he is at 100% yet. He states that his coughing has decreased. OBJECTIVE: Vital Signs: Temperature 97.9 degrees, blood pressure 128/82, heart rate 89, respirations 20, O2 saturations 96% on 3 L nasal cannula. General: This is a morbidly obese male sitting at the edge of the bed in no acute distress. Head: Normocephalic, atraumatic. Heart: S1, S2. Normal. Regular rate and rhythm. Lungs: Equal air entry bilaterally. Coarse breath sounds at the bases. Abdomen: Positive bowel sounds. Soft, obese, nontender, nondistended. Extremities: +1 edema. No cyanosis. No calf tenderness. Neurologic: The patient is alert and oriented x4. LAB: White blood cell count 8.5, hemoglobin 14, hematocrit 46, platelets 211,000, sodium 140, potassium 4.4, chloride 95, CO2 36, BUN 18, creatinine 1.2, glucose 103. ASSESSMENT AND PLAN: 1. Pneumonia. Continue on IV antibiotic and bronchodilator therapy. 2. Chronic obstructive pulmonary disease exacerbation. Continue with bronchodilator therapy and prednisone. 3. Morbid obesity. Aware. 4. Diabetes mellitus type 2 uncontrolled. Continue on Lantus 40 units subcutaneous twice a day. 5. Deep vein thrombosis prophylaxis. Continue on Lovenox. cc: Sanam Sanchez MD
[2017-08-10] MEDS ORDERED: INSULIN PEN NEEDLES ONE (06:26)
[2017-08-10] MEDS: PROTONIX PO SCH (06:53)
[2017-08-10] MEDS: HUMULIN R SUBQ SCH ×4 (06:55→21:28)
[2017-08-10 07:06] LABS: MANUAL DIFF NEEDED? NO
[2017-08-10 07:21] LABS: BASO% 0.2 % (0.0-0.8); EOS# 0.43 X1000 (0.0-0.7); EOS% 4.6 % (0.0-10.0); HEMATOCRIT 45.9 % (42.0-52.0); HEMOGLOBIN 14.3 g/dL (14.0-18.0); IMM GRAN# 0.03 X1000 (0.0-0.04); IMM GRAN% 0.3 % (0.0-0.5); LYMPH# 1.48 X1000 (1.2-3.4); LYMPH% 15.7 % (20.5-51.1); MCH 28.9 PG (27-31); MCHC 31.2 g/dL (33-37); MCV 92.7 FL (81-99); MONO# 0.92 X1000 (0.11-0.59); MONO% 9.8 % (1.7-9.3); MPV 10.1 FL (7.4-10.4); NEUT% 69.4 % (42.2-75.2); PLT 190 X1000 (130-400); RBC 4.95 XMIL (4.7-6.1)
[2017-08-10 07:41] LABS: AGAP 12; BUN 16 mg/dL (8-22); CALCIUM 8.7 mg/dL (8.8-10.2); CHLORIDE 94 mmol/L (98-107); COSMO 277; SODIUM 138 mmol/L (136-145); TCO2 32 mmol/L (25-35)
[2017-08-10] MEDS: PRINIVIL PO SCH (08:25)
[2017-08-10] MEDS: PREDNISONE PO SCH (08:25)
[2017-08-10] MEDS: LASIX PO SCH ×2 (08:25→21:15)
[2017-08-10] MEDS: KLOR-CON PO SCH ×2 (08:25→21:15)
[2017-08-10] MEDS: LANTUS SUBQ SCH ×2 (08:26→21:14)
[2017-08-10] MEDS: LOVENOX SUBQ SCH (08:27)
[2017-08-10] MEDS: MUCOMYST 20% INH SCH ×2 (09:40→21:10)
[2017-08-10] MEDS: VANCOMYCIN 2,000 MG in NS 500 ML IV SCH (11:55)
--- NOTE | 2017-08-10 13:45 | PROGRESS NOTE ---
DATE: 08/10/2017 SUBJECTIVE: The patient is resting comfortably in bed. He has no complaints at this time. He states that he is starting to feel a lot better. OBJECTIVE: Vital Signs: Temperature 98, blood pressure 120/71, heart rate 84, respirations 18, O2 saturations 91% on 2 L nasal cannula. General: This is a morbidly obese male, sitting at the edge of the bed, in no acute distress. Heart: S1, S2. Normal. Regular rate and rhythm. Lungs: Clear to auscultation bilaterally. No wheezes, no rales. No rhonchi. Abdomen: Positive bowel sounds. Soft, nontender, nondistended. Extremities: +1 edema. No cyanosis. No calf tenderness. Neurologic: The patient is alert and oriented x4. LABS: White blood cell count 9.4, hemoglobin 14, hematocrit 45, platelets 190. Sodium 138, potassium 4, chloride 94, CO2 of 32, BUN 16, creatinine 1.1. Glucose 94. ASSESSMENT AND PLAN: 1. Pneumonia. Continue on IV antibiotic therapy. 2. Bacteremia. One bottle of the blood cultures came back positive for gram-positive cocci. Will await the final culture results. I suspect that this may just represent a contaminant. 3. Morbid obesity. Aware. 4. Chronic obstructive pulmonary disease. Continue on bronchodilator therapy and prednisone. 5. Fatty liver disease. Aware. 6. Diabetes mellitus type 2. Continue on Lantus 40 units subcutaneous twice a day. 7. Deep vein thrombosis prophylaxis. Continue on Lovenox. DISPOSITION: Hopefully, the patient will be able to be discharged home tomorrow. cc: Sanam Sanchez MD
[2017-08-11] MEDS: ATROVENT NEB INH SCH ×4 (03:10→19:36)
[2017-08-11] MEDS: XOPENEX NEB INH SCH ×5 (03:10→19:36)
[2017-08-11] MEDS: PROTONIX PO SCH (06:26)
[2017-08-11] MEDS: ZOSYN 3.375 GM in NS 50 ML IV SCH ×4 (06:26→23:49)
[2017-08-11] MEDS: HUMULIN R SUBQ SCH ×4 (06:31→20:11)
[2017-08-11 06:51] LABS: HEMOGLOBIN 14.7 g/dL (14.0-18.0)
[2017-08-11 07:07] LABS: HEMATOCRIT 47.6 % (42.0-52.0); MCH 29.1 PG (27-31); MCHC 30.9 g/dL (33-37); MCV 94.1 FL (81-99); MPV 10.2 FL (7.4-10.4); RBC 5.06 XMIL (4.7-6.1)
[2017-08-11 07:26] LABS: AGAP 12; BUN 14 mg/dL (8-22); CALCIUM 8.3 mg/dL (8.8-10.2); CHLORIDE 95 mmol/L (98-107); COSMO 278; SODIUM 139 mmol/L (136-145); TCO2 32 mmol/L (25-35)
[2017-08-11] MEDS: MUCOMYST 20% INH SCH ×2 (07:40→19:36)
[2017-08-11] MEDS: PREDNISONE PO SCH (08:26)
[2017-08-11] MEDS: LASIX PO SCH ×2 (08:26→20:10)
[2017-08-11] MEDS: PRINIVIL PO SCH (08:26)
[2017-08-11] MEDS: KLOR-CON PO SCH ×2 (08:26→20:10)
[2017-08-11] MEDS: LANTUS SUBQ SCH ×2 (08:27→20:11)
[2017-08-11] MEDS: LOVENOX SUBQ SCH (08:27)
--- NOTE | 2017-08-11 09:56 | Diag Imaging Result Doc PS360 ---
EXAM: CHEST-2 VIEWS HISTORY: pneumonia TECHNIQUE: PA and lateral chest COMMENT: There is a granuloma in the right upper lobe. There is no evidence of acute cardiac or pulmonary disease otherwise and compared to 08/04/2017 there has been no significant change. IMPRESSION: No acute disease. Electronically signed by Rusty King 08/11/2017 9:53 AM
[2017-08-11] MEDS ORDERED: NORCO-7.5 PO PRN (11:07)
[2017-08-11] MEDS: VANCOMYCIN 2,000 MG in NS 500 ML IV SCH (11:24)
--- NOTE | 2017-08-11 17:51 | PROGRESS NOTE ---
DATE: 08/11/2017 SUBJECTIVE: The patient is resting comfortably in bed. He states that he feels better. OBJECTIVE: Vital Signs: Temperature 98.4 degrees, blood pressure 127/68, heart rate 94, respirations 18, O2 saturations 94% on 2 L nasal cannula. General: This is a morbidly obese male, lying in bed, in no acute distress. Head: Normocephalic, atraumatic. Heart: S1, S2. Normal. Regular rate and rhythm. Lungs: Clear to auscultation bilaterally. No crackles. No rales. No wheezing. Abdomen: Positive bowel sounds. Soft, obese, nontender, nondistended. Extremities: +1 edema. No cyanosis. No calf tenderness. Neurologic: The patient is alert and oriented x4. LABORATORIES: White blood cell count 11, hemoglobin 14, hematocrit 47, platelets 213,000. Sodium 139, potassium 4, chloride 95, CO2 32, BUN 14, creatinine 1.2, glucose 104, calcium 8.3. ASSESSMENT AND PLAN: 1. Pneumonia. The patient appears to be responding to the antibiotic therapy. Continue with the current management. 2. Bacteremia. One bottle of the blood culture is still positive. We are currently awaiting the identification of the organism. 3. Morbid obesity. Aware. 4. Chronic obstructive pulmonary disease. Continue with bronchodilator therapy and prednisone. 5. Fatty liver disease. Aware. 6. Diabetes mellitus type 2. Continue on Lantus 40 units subcutaneous twice a day. 7. Deep vein thrombosis prophylaxis. Continue on Lovenox. cc: Sanam Sanchez MD
--- NOTE | 2017-08-11 22:24 | CONSULTATION ---
DATE OF CONSULTATION: 08/11/2017 CONCLUSION: Dr. Sanchez asked me to see the patient about a positive blood culture. The patient had 2 blood cultures drawn. One is not growing any organisms and the other one is growing some organisms. There are gram positive cocci and it looks like they may be identified as a Streptococcus, such as Streptococcus viridans. If in fact that is what the organisms box turner to be, then I would consider that blood culture contaminated and the patient does not need any antibiotic treatment for it. DISCUSSION: The patient was admitted to the hospital because of dyspnea and a low O2. Two blood cultures were drawn. One of the two is growing gram positive cocci as mentioned above. The patient had a cough productive of yellow sputum, but that is better. He also has some diaphoresis. His symptoms started approximately 4 days ago. The patient's CBC showed a white count today of 11,060. Hemoglobin 14.7 and platelet count 213,000. Creatinine is 1.2. GFR is greater than 60. A random vancomycin level was 7.3. The patient's chest x-ray is clear. Patient had a CT scan of the chest earlier which showed a trace right upper lobe infiltrate. As mentioned above, one of the patient's 2 blood cultures is growing a gram-positive coccus. The other blood culture is sterile. PAST MEDICAL HISTORY/REVIEW OF SYSTEMS: Eyes and ears: He denies any trouble hearing or seeing. Neck: No stiffness. Respiratory: The patient does have dyspnea on exertion. GI: Patient intermittently has diarrhea. He has not been having any nausea or vomiting. Genitourinary: No dysuria or flank pain. Neurologic: No syncopal episodes. No seizures. Endocrine: The patient was told he is borderline diabetic. He does not have thyroid disease. Bones, joints, muscles: He is not complaining of any swollen joints or muscle aches at this time. PREVIOUS HOSPITALIZATIONS AND OPERATIONS: Patient has had a cholecystectomy and he has been admitted once for pneumonia. MEDICAL DISEASES: Positive for diabetes mellitus. Morbid obesity. He at one time had hypertension, but he states that has cleared and he does not need any medication for it. INFECTIOUS DISEASE HISTORY: Positive for pneumonia and UTI. FAMILY HISTORY: Positive for diabetes mellitus and hypertension. ALLERGIES: His chart lists no known drug allergies. SOCIAL HISTORY: The patient is . He lives in [place] with his mother. He is disabled. He stopped smoking cigarettes in 2012. He stopped drinking alcoholic beverages 6 months ago. HOME MEDICATIONS: Potassium. Metformin. Lisinopril. Lasix. PHYSICAL EXAMINATION: Vital signs: Temperature is 98.4 degrees, pulse 94, respirations 18, blood pressure 127/68. Patient weighs 432 pounds. General: This is a morbidly obese, middle-aged male who is in no acute distress at this time. Head, eyes, ears, nose, and throat: He can hear my spoken words. He can see near objects. There were no white patches on his tongue. Neck: No meningismus. Thorax: There is increase in the AP diameter, but some of this may be due to the patient's morbid obesity. Lungs: Diminished breath sounds in the bases. I did not hear any rhonchi or rales. Cardiovascular: Heart tones were distant. They were regular, and I did not hear a murmur. Abdomen: Soft and nontender. Neurologic: Patient is awake. He can move his extremities. There is no tremor. He is able to walk without limping. His memory as regarding his medical history seemed intact. He can move his arms and legs. Thank you for the consult. cc: Brennen Lennon MD
[2017-08-12] MEDS: ATROVENT NEB INH SCH ×2 (03:29→07:48)
[2017-08-12] MEDS: XOPENEX NEB INH SCH ×2 (03:29→07:48)
[2017-08-12] MEDS ORDERED: VANCOMYCIN 2,000 MG in NS 500 ML IV SCH (05:00)
[2017-08-12] MEDS: ZOSYN 3.375 GM in NS 50 ML IV SCH ×2 (05:30→11:14)
[2017-08-12] MEDS: HUMULIN R SUBQ SCH ×2 (06:04→11:13)
[2017-08-12] MEDS: PROTONIX PO SCH (06:27)
[2017-08-12] MEDS ORDERED: INSULIN PEN NEEDLES ONE (07:04)
[2017-08-12] MEDS: MUCOMYST 20% INH SCH (07:48)
[2017-08-12 08:27] VITALS: BP 130/78
[2017-08-12] MEDS: PRINIVIL PO SCH (08:36)
[2017-08-12] MEDS: KLOR-CON PO SCH (08:36)
[2017-08-12] MEDS: PREDNISONE PO SCH (08:36)
[2017-08-12] MEDS: LOVENOX SUBQ SCH (08:36)
[2017-08-12] MEDS: LANTUS SUBQ SCH (08:36)
[2017-08-12] MEDS: LASIX PO SCH (08:36)
--- NOTE | 2017-08-14 17:15 | DISCHARGE SUMMARY ---
ADMISSION DATE: 08/04/2017 DISCHARGE DATE: 08/12/2017 FINAL DISCHARGE DIAGNOSES: 1. Acute chronic obstructive pulmonary disease exacerbation. 2. Pneumonia. 3. Morbid obesity. 4. Fatty liver disease. 5. Diabetes mellitus type 2. HOSPITAL COURSE: Mr. Medeiros is a 46-year-old male with a history of multiple medical problems, who presented to the ER with a chief complaint of shortness of breath. A chest x-ray was done on admission that was noted to be negative. It was thought that the patient was suffering from a COPD exacerbation. He was placed on bronchodilator therapy and steroid therapy. The patient also had blood cultures drawn, 1 bottle came back positive for Strep viridans and the other 1 remained negative. This was thought to be a contaminant. The patient was also seen by Dr. Brennen Lennon. A CT of the chest was done that revealed a trace right upper lobe infiltrate so the patient's antibiotics were changed. Slowly over the course of the hospitalization, the patient's respiratory status improved. The patient was noted to desaturate with activity so Case Management was consulted to assist with obtaining oxygen for the patient. When it was time to discharge the patient, the patient stated that he did not want to pay the $50 required to obtain the oxygen. The patient stated that he would talk to his primary care physician and get him to arrange for the oxygen. The patient was discharged on 08/12/2017. DISCHARGE MEDICATIONS: 1. Augmentin 1 tab oral twice a day x5 days. 2. Lantus 40 units subcutaneous twice a day. 3. Ventolin 2 puffs inhaled every 4 hours p.r.n. 4. Metformin 500 mg p.o. twice a day. 5. Lasix 40 mg p.o. twice a day. 6. Klor-Con 20 mEq oral twice a day. 7. Lisinopril 5 mg p.o. daily. DISCHARGE DIET: Low sodium, low cholesterol diet. ACTIVITY: As tolerated. FOLLOWUP INSTRUCTIONS: The patient will need to follow up with Dr. Wallace in 2 weeks. cc: Antonio Wallace Jr, MD Katherine Takundwa, MD
== END 2017-08-12 14:41 | disposition home or self-care (01) ==
LOC: ED 12:12 → SUATTDRO 16:28 → 3N 16:28
PROVIDERS: ATTEND Internal Medicine